=== PATIENT | male | born 1990 | race Two or more races ===

== ENCOUNTER 2024-01-27 02:22 | Emergency (ER) | payer MEDICAID, OTHER ==
[~2024-01-27] VITALS: Ht 172.7 cm; Wt 81.7 kg
[2024-01-27] MEDS: diphenhdrAMINE HCL 50 MG/1 ML VL IV ONE (02:45)
[2024-01-27] MEDS: LORazepam 2MG/ML-1ML VIAL IV ONE (02:45)
[2024-01-27] MEDS: HALOPERIDOL LACTATE 5 MG/ML INJ VIAL IM ONE (02:45)
[2024-01-27 02:50] VITALS: PULSE 129; RESP 36; O2SAT 94
[2024-01-27 03:00] LABS: Urine Bacteria None Seen /hpf (None Seen)
[2024-01-27 03:55] LABS: Urine Blood TRACE /uL (Negative); Urine Clarity Clear (Clear); Urine Color Light-Yellow (Yellow); Urine Hyaline Cast MOD /lpf (0 - 2); Urine Mucus FEW (None Seen); Urine Protein, UAD 1+ (Negative); Urine Specific Gravity 1.012 (1.001-1.035); Urine Urobilinogen Normal (Negative); Urine WBC 3 /hpf (0 - 3); Urine pH 5.5 (5.0-9.0)
[2024-01-27 03:56] LABS: Amphetamine Screen, Urine Neg (NEGATIVE); Barbiturate Scree,Urine Neg (NEGATIVE); Benzodiazephine Screen, Urine Neg (NEGATIVE); Cocaine Screen, Urine Neg (NEGATIVE)
[2024-01-27 03:57] LABS: Cannabinoid Screen, Urine Pos (NEGATIVE); Opiate Scree,Urine Neg (NEGATIVE); Phencyclidine Screen, Urine Neg (NEGATIVE)
[2024-01-27 07:24] VITALS: BP 112/88; PULSE 69; RESP 21; TEMP 98.2; O2SAT 94
== END 2024-01-27 07:49 ==
LOC: ER 02:44 → EDBD 02:44 → ER 07:48
DX: R46.89 Other symptoms and signs involving appearance and behavior (principal)
CPT/HCPCS: 80307; 81001; 96372; 96374; 96375; 99285; J1200; J1630; J2060